=== PATIENT | male | born 1945 | race Caucasian/White ===

== ENCOUNTER 2017-07-15 13:58 | Emergency (ER) | payer OTHER, MEDICARE, BC ==
[~2017-07-15] VITALS: Ht 182.9 cm; Wt 98.9 kg
[~2017-07-15 13:58] MED LIST: BYSTOLIC20 MG PO; DIOVAN HCT 3201 EACH PO; LESCOL XL80 MG PO; MULTIVITAMINS PO; NEPHROCAPS SOFT1 CAP PO; NORVASC10 MG PO; OMEGA-3 FISH O1 EAC3 PO; TEKTURNA300 MG PO; TRAVATAN 0.004%5 ML OP
[2017-07-15] MEDS ORDERED: LIPITOR 20 MG T20 M1 PO (14:13)
[2017-07-15] MEDS ORDERED: LOPRESSOR50 PO (14:13)
[2017-07-15] MEDS ORDERED: HYZAAR 50-12.51 EACH PO (14:15)
[2017-07-15] MEDS ORDERED: NORCO 7.5-3251 EACH PO (16:31)
[2017-07-15 17:03] VITALS: BP 148/80
== END 2017-07-15 17:03 | disposition home or self-care (01) ==
LOC: M.ERS 13:58
DX: S52.531A Colles' fracture of right radius, initial encounter for closed fracture (principal); S52.612A Displaced fracture of left ulna styloid process, initial encounter for closed fracture; I10 Essential (primary) hypertension; E78.5 Hyperlipidemia, unspecified; M19.90 Unspecified osteoarthritis, unspecified site; Z88.1 Allergy status to other antibiotic agents; W06.XXXA Fall from bed, initial encounter; Y93.89 Activity, other specified; Y92.89 Other specified places as the place of occurrence of the external cause; Y99.8 Other external cause status

== ENCOUNTER → 2017-07-22 | Outpatient (CLI) | payer OTHER, MEDICARE, BC ==
[~2017-07-22] MED LIST changes: +HYZAAR 50-12.51 EACH PO; +LIPITOR 20 MG T20 M1 PO; +LOPRESSOR50 PO; +NORCO 7.5-3251 EACH PO
== END ==
LOC: M.LAB 08:26
DX: Z01.818 Encounter for other preprocedural examination (principal)

== ENCOUNTER → 2017-10-14 | Outpatient (CLI) | payer OTHER, MEDICARE, BC | LOC: M.LAB 01:47 | DX: Z79.899 Other long term (current) drug therapy (principal) ==

== ENCOUNTER 2020-01-09 06:14 | Emergency (ER) | payer MEDICARE, BC ==
[~2020-01-09] VITALS: Ht 182.9 cm; Wt 86.2 kg
[2020-01-09] MEDS ORDERED: KEFLEX500 M1 PO (06:45)
[2020-01-09] MEDS ORDERED: SSD CREAM 1% 5050 GM TOP (06:50)
[2020-01-09 06:54] VITALS: BP 185/91
== END 2020-01-09 06:57 | disposition home or self-care (01) ==
LOC: M.ERS 06:14
DX: T23.241A Burn of second degree of multiple right fingers (nail), including thumb, initial encounter (principal); T31.0 Burns involving less than 10% of body surface; I10 Essential (primary) hypertension; E78.5 Hyperlipidemia, unspecified; Z88.5 Allergy status to narcotic agent; X10.1XXA Contact with hot food, initial encounter; Y93.89 Activity, other specified; Y92.89 Other specified places as the place of occurrence of the external cause; Y99.8 Other external cause status

== ENCOUNTER 2020-01-09 18:51 | Emergency (ER) | payer MEDICARE, BC ==
[~2020-01-09] VITALS: Ht 185.4 cm; Wt 86.2 kg
[~2020-01-09 18:51] MED LIST changes: +KEFLEX500 M1 PO; +SSD CREAM 1% 5050 GM TOP
[2020-01-09 19:59] VITALS: BP 186/104
== END 2020-01-09 19:59 | disposition home or self-care (01) ==
LOC: M.ERS 18:51
DX: T23.1 Burn of first degree of wrist and hand (principal); I10 Essential (primary) hypertension; E78.5 Hyperlipidemia, unspecified; M19.90 Unspecified osteoarthritis, unspecified site; Z88.5 Allergy status to narcotic agent; X08.8XXD Exposure to other specified smoke, fire and flames, subsequent encounter